=== PATIENT | female | born 2000 | race Caucasian/White ===

== ENCOUNTER 2019-06-17 18:08 | Emergency (ER) | payer OTHER ==
[2019-06-17 18:19] VITALS: BP 118/72; PULSE 77; TEMP 98.5; BMI 28.0
--- NOTE | 2019-06-17 18:50 | PDOC ---
History of Present Illness - General Chief Complaint: Sore Throat Stated Complaint: SORE THROAT X 2 WKS Time Seen by Provider: 06/17/19 18:22 History Source: Patient Exam Limitations: No Limitations Past History - Past Medical History Allergies/Adverse Reactions: Allergies Allergy/AdvReac Type Severity Reaction Status Date / Time No Known Allergies Allergy Verified 06/17/19 18:18 Home Medications: Ambulatory Orders NK [No Known Home Medication] 06/17/19 COPD: No - Psycho Social/Smoking Cessation Hx Smoking History: Never smoked *Physical Exam - Vital Signs Last Vital Signs Temp Pulse Resp BP Pulse Ox 98.5 F 77 18 118/72 99 06/17/19 18:16 06/17/19 18:16 06/17/19 18:16 06/17/19 18:16 06/17/19 18:16 - Physical Exam General Appearance: No: Apparent Distress HEENT: positive: TMs Normal, Pharynx Normal. negative: Pharyngeal Erythema, Tonsillar Exudate, Tonsillar Erythema, Rhinorrhea Respiratory/Chest: positive: Lungs Clear, Normal Breath Sounds. negative: Respiratory Distress Cardiovascular: positive: Regular Rhythm, Regular Rate, S1, S2. negative: Murmur Gastrointestinal/Abdominal: positive: Normal Bowel Sounds, Soft. negative: Tender, Distended, Guarding, Rebound Integumentary: positive: Normal Color Neurologic: positive: Alert Medical Decision Making - Medical Decision Making 18 y/o F with no sig pmh presents with subjective fever x 3 days along with cough, congestion, sore throat. Did not check temperature. Had 2 episodes of emesis yesterday and 1 today. Also with mild diarrhea. Did not take any antipyretics today. Likely viral syndrome supportive care discussed stable for dc 06/17/19 18:45 Discharge - Discharge Information Problems reviewed: Yes Clinical Impression/Diagnosis: Viral syndrome Condition: Stable Disposition: HOME - Admission No - Additional Discharge Information Prescription Drug Monitoring Program (I-STOP) results: I-STOP not reviewed - Follow up/Referral - Patient Discharge Instructions Patient Printed Discharge Instructions: DI for Viral Gastroenteritis -- Adult Additional Instructions: Thank you for choosing [facility]. It was a pleasure taking care of you. You have likely have the stomach bug/viral syndrome Recommend plenty of hydration (at least 2-3L of water daily) You may drink pedialyte Eat light food like bananas, rice, applesauce, toast, crackers until feeling better Follow-up with your doctor in 2 day Return to the Emergency Department if your symptoms worsen or persist or have other concerning symptoms. Medardo por elegir el [facility]. Fue un placer cuidar de ti. Es probable que tenga el virus estomacal / sndrome viral Recomiende juan ramon hidratacin (al menos 2-3L de agua al da) Puedes beber pedialyte Coma alimentos ligeros yonatan pltanos, arroz, pur de manzana, tostadas, galletas saladas hasta sentirse mejor. Seguimiento con hsu mdico en 2 cevallos. Regrese al departamento de emergencias si aleksandra sntomas empeoran o persisten o si tiene otros sntomas preocupantes. Print Language: ITALIAN - Post Discharge Activity Work/Back to School Note: Back to Work
== END 2019-06-17 19:07 | disposition home or self-care (01) ==
LOC: JERFT 18:08
DX: B34.9 Viral infection, unspecified (principal)
CPT/HCPCS: 99281-25

== ENCOUNTER 2019-06-19 10:09 | Emergency (ER) | payer OTHER ==
[2019-06-19 10:26] VITALS: BP 128/61; PULSE 112; TEMP 98; BMI 28.0
[2019-06-19] MEDS ORDERED: ONDANSETRON *ODT* 4 MG TABLET SL ONE (11:58)
[2019-06-19] MEDS ORDERED: ONDANSETRON 4 MG TABLET PO ONE (12:00)
--- NOTE | 2019-06-19 12:06 | PDOC ---
History of Present Illness - General Chief Complaint: Cold Symptoms Stated Complaint: COLD SYMPTOMS Time Seen by Provider: 06/19/19 11:17 - History of Present Illness Initial Comments: 06/19/19 12:05 18-year-old female diagnosed with viral gastroenteritis still has symptoms of nausea and vomiting. She has not followed up with her primary care physician she has not taken Pedialyte Past History - Past Medical History Allergies/Adverse Reactions: Allergies Allergy/AdvReac Type Severity Reaction Status Date / Time No Known Allergies Allergy Verified 06/19/19 10:23 Home Medications: Ambulatory Orders Ondansetron [Zofran *Odt*] 4 mg SL BID #14 od.tablet 06/19/19 COPD: No - Psycho Social/Smoking Cessation Hx Smoking History: Never smoked Review of Systems - Review of Systems Constitutional: Yes: Chills, Malaise, Night Sweats. No: Fever ABD/GI: Yes: Nausea, Vomiting *Physical Exam - Vital Signs Last Vital Signs Temp Pulse Resp BP Pulse Ox 98 F 112 H 18 128/61 100 06/19/19 10:23 06/19/19 10:23 06/19/19 10:23 06/19/19 10:23 06/19/19 10:23 - Physical Exam 06/19/19 12:05 GENERAL: The patient is awake, alert, and fully oriented, in no acute distress. HEAD: Normal with no signs of trauma. EYES: sclera anicteric, conjunctiva clear. ENT: Ears normal tympanic membranes normal oropharynx clear uvula midline NECK: Normal range of motion LUNGS: Breath sounds equal, clear to auscultation bilaterally. No wheezes, and no crackles. HEART: S1 and S2 without murmur, rub or gallop. ABDOMEN: Soft, nontender, normoactive bowel sounds. No guarding, no rebound. No masses. EXTREMITIES: Normal range of motion, no edema. No clubbing or cyanosis. No cords, erythema, or tenderness. NEUROLOGICAL: Cranial nerves II through XII grossly intact. PSYCH: Normal mood, normal affect. SKIN: Warm, Dry, normal turgor, no rashes or lesions noted. ED Treatment Course - Medications Given in the ED: ED Medications Discontinued Medications Generic Name Dose Route Start Last Admin Trade Name Freq PRN Reason Stop Dose Admin Ondansetron HCl 4 mg 06/19/19 11:58 06/19/19 12:01 Zofran Odt - SL 06/19/19 11:59 4 mg ONCE ONE Administration Medical Decision Making - Medical Decision Making 06/19/19 12:05 Discussed the importance of Pedialyte for hydration and symptomatic relief with Zofran follow-up with PCP Discharge - Discharge Information Problems reviewed: Yes Clinical Impression/Diagnosis: Viral syndrome Condition: Stable Disposition: HOME - Admission No - Additional Discharge Information Prescriptions: Ondansetron [Zofran *Odt*] 4 mg SL BID #14 od.tablet - Follow up/Referral Referrals: Yoselin Albarran NP [Primary Care Provider] - - Patient Discharge Instructions Additional Instructions: Return to the emergency room for worsening symptoms please use the Zofran as needed for nausea as prescribed. Without fail follow-up with your primary care physician in 1 to 2 days for further evaluation and treatment options. Please use the Pedialyte as directed at last discharge and return to the emergency room should symptoms worsen. - Post Discharge Activity
== END 2019-06-19 12:17 | disposition home or self-care (01) ==
LOC: JERFT 10:09
DX: B34.9 Viral infection, unspecified (principal)
CPT/HCPCS: 99281-25; Q0162

== ENCOUNTER 2019-11-19 19:21 | Emergency (ER) | payer OTHER ==
[2019-11-19 19:29] VITALS: TEMP 98.4; BMI 35.5
--- NOTE | 2019-11-19 19:31 | PDOC ---
History of Present Illness - General Chief Complaint: Cold Symptoms Stated Complaint: BODYACHES Time Seen by Provider: 11/19/19 19:26 History Source: Patient Exam Limitations: No Limitations - History of Present Illness Initial Comments: 11/19/19 19:27 19 year old female with shortness of breath and fever, bodyaches since today. patient lives with sister and brother in law who was tested positive for covid. denies chest pain, cough, NVd, abdominal pain, diarrhea Past History - Medical History Allergies/Adverse Reactions: Allergies Allergy/AdvReac Type Severity Reaction Status Date / Time No Known Allergies Allergy Verified 06/19/19 10:23 Home Medications: Ambulatory Orders Ondansetron [Zofran *Odt*] 4 mg SL BID #14 od.tablet 07/28/19 Azithromycin [Zithromax 250mg Tablets -] 250 mg PO UTDICT #6 tab 11/19/19 COPD: No - Psycho-Social/Smoking History Smoking History: Never smoked Review of Systems - Review of Systems Able to Perform ROS?: Yes Is the patient limited Maltese proficient: No Constitutional: Yes: Chills, Fever, Other (bodyaCHES) Respiratory: Yes: Shortness of Breath. No: Symptoms reported, See HPI, Cough, Orthopnea, SOB with Exertion, SOB at Rest, Stridor, Wheezing, Productive cough, Hemoptysis, Other Cardiac (ROS): No: Symptoms Reported, See HPI, Chest Pain, Edema, Irregular Heart Rate, Lightheadedness, Palpitations, Syncope, Chest Tightness, Other ABD/GI: No: Symptoms Reported, See HPI, Abdominal Distended, Abd. Pain w/ defecation, Blood Streaked Bowels, Constipated, Diarrhea, Difficulty Swallowing, Nausea, Poor Appetite, Poor Fluid Intake, Rectal Bleeding, Vomiting, Indigesti on, Abdominal cramping, Tarry Stools, Other *Physical Exam - Vital Signs 11/19/19 19:34 Last Vital Signs Temp Pulse Resp BP Pulse Ox 98.4 F 103 H 20 114/54 L 98 11/19/19 19:26 11/19/19 19:26 11/19/19 19:26 11/19/19 19:26 11/19/19 19:26 - Physical Exam General Appearance: Yes: Appropriately Dressed HEENT: positive: Normal ENT Inspection Respiratory/Chest: positive: Lungs Clear, Normal Breath Sounds Cardiovascular: positive: Regular Rhythm, Regular Rate Extremity: positive: Normal Capillary Refill, Normal Inspection, Normal Range of Motion Integumentary: positive: Dry, Warm Neurologic: positive: Fully Oriented, Alert, Normal Mood/Affect Medical Decision Making - Medical Decision Making 11/19/19 19:33 A: suspected covid P: covid chest xray: some congestion will empirically treat strict return precautions were reviewed with patient. Discharge - Discharge Information Problems reviewed: Yes Clinical Impression/Diagnosis: Suspected COVID-19 virus infection, Bronchitis Disposition: HOME - Additional Discharge Information Prescriptions: Azithromycin [Zithromax 250mg Tablets -] 250 mg PO UTDICT #6 tab - Follow up/Referral Referrals: Yoselin Albarran NP [Primary Care Provider] - - Patient Discharge Instructions Patient Printed Discharge Instructions: [facility]-Coronavirus Instructions, [facility]- [facility] COVID-19 Isolation Protocol Additional Instructions: YOU WERE TESTED FOR COVID. YOU TEST RESULTS TAKE SEVERAL DAYS TO RESULT. PLEASE CONTINUE ISOLATION AT HOME. WE WILL CALL YOU [facility] YOUR RESULTS. You were seen for your cough and possible Coronavirus (COVID-19) Please call the [facility] testing center to make an appointment at or you can call [facility] at from 8:30 AM to 6 PM; or you can visit the [facility] website: [email or web address] for more information about testing at the [facility]. Take Tylenol 650 mg every 6 hours as needed for fever or pain. TAKE IBUPROFEN every 6 hours as needed for fever/ pain You may take Robitussin or other tlyt-maa-tbqkepo cough syrup. Follow the dosing instructions on the bottle. Warm tea, honey, and salt water gargles may help your symptoms. Please take precautions and self quarantine for 2 weeks and follow-up with your primary care doctor and the Department of Health. Return to the nearest emergency department for shortness of breath, difficulty breathing, chest pain, or if you have any changes in your symptoms. - Post Discharge Activity
[2019-11-19 19:59] VITALS: BP 142/62; PULSE 94
== END 2019-11-19 20:01 | disposition home or self-care (01) ==
LOC: JER 19:21
DX: J40 Bronchitis, not specified as acute or chronic (principal)
CPT/HCPCS: 71046-TC-FY; 99283-25; U0003

== ENCOUNTER 2019-11-27 20:41 | Emergency (ER) | payer OTHER ==
[2019-11-27] MEDS ORDERED: ONDANSETRON *ODT* 4 MG TABLET SL ONE (20:52)
[2019-11-27 20:53] VITALS: BP 128/64; BMI 35.5
--- NOTE | 2019-11-27 20:54 | PDOC ---
Rapid Medical Evaluation Chief Complaint: Vomiting/Diarrhea Time Seen by Provider: 11/27/19 20:50 Medical Evaluation: Allergies Allergy/AdvReac Type Severity Reaction Status Date / Time No Known Allergies Allergy Verified 06/19/19 10:23 11/27/19 20:51 19 year old here with boyfriend c/o NVD after eating out last night. last vomitus was 1 am. boy friend also here with similar symptoms. PE: patient alert ox3 [place] moist A: gastroenteritis P: ua/ urine Discharge Disposition - Diagnosis Gastroenteritis - Referrals - Patient Instructions - Post Discharge Activity
--- NOTE | 2019-11-27 21:20 | PDOC ---
History of Present Illness - General Chief Complaint: Vomiting/Diarrhea Stated Complaint: VOMITING Time Seen by Provider: 11/27/19 20:50 History Source: Patient - History of Present Illness Initial Comments: 11/27/19 21:53 19 year old female c/o NVD after eating liberian food last night. last vomiting episode was at 1 am and now has diarrhea. boyfriend is here with similar symptoms. PMHX: gastritis Past History - Medical History Allergies/Adverse Reactions: Allergies Allergy/AdvReac Type Severity Reaction Status Date / Time No Known Allergies Allergy Verified 11/27/19 20:53 Home Medications: Ambulatory Orders Ondansetron [Zofran *Odt*] 4 mg SL BID #14 od.tablet 07/28/19 Azithromycin [Zithromax 250mg Tablets -] 250 mg PO UTDICT #6 tab 11/19/19 COPD: No - Psycho-Social/Smoking History Smoking History: Never smoked - Substance Abuse Hx (Audit-C & DAST Scrn) How often the patient has a drink containing alcohol: Never Score: In Men: 4 or > Positive; In Women: 3 or > Positive: 0 Screen Result (Pos requires Nsg. Audit-10AR): Negative *Physical Exam - Vital Signs Last Vital Signs Temp Pulse Resp BP Pulse Ox 99.2 F 110 H 18 128/64 97 11/27/19 20:50 11/27/19 20:50 11/27/19 20:50 11/27/19 20:50 11/27/19 20:50 - Physical Exam General Appearance: Yes: Appropriately Dressed Respiratory/Chest: positive: Lungs Clear, Normal Breath Sounds Cardiovascular: positive: Regular Rhythm, Regular Rate Gastrointestinal/Abdominal: positive: Normal Bowel Sounds, Soft. negative: Tender Extremity: positive: Normal Capillary Refill, Normal Inspection, Normal Range of Motion Integumentary: positive: Normal Color, Dry, Warm Neurologic: positive: Fully Oriented, Alert, Normal Mood/Affect, Normal Response, Motor Strength 5/5 ED Progress Note - Progress Note Progress Note: 11/28/19 03:58 A: gastroenteritis P: BRAT diet zofran Discharge - Discharge Information Problems reviewed: Yes Clinical Impression/Diagnosis: Gastroenteritis Disposition: HOME - Follow up/Referral Referrals: Yoselin Albarran NP [Primary Care Provider] - - Patient Discharge Instructions Patient Printed Discharge Instructions: Viral Gastroenteritis Additional Instructions: drink plenty of fluids. start a BRAT (bananas, rice, apples, toast) diet follow up with your doctor as soon as possible return to the ER for any worsening symptoms/ - Post Discharge Activity Work/Back to School Note: Back to Work
[2019-11-27] MEDS ORDERED: ONDANSETRON *ODT* 4 MG TABLET ONE (21:30)
[2019-11-27 21:48] LABS: PH,URINE 6.5 (5.0-8.0); URINE APPEARANCE CLEAR; URINE BILIRUBIN NEGATIVE (NEGATIVE); URINE COLOR YELLOW; URINE GLUCOSE (UA) NEGATIVE (NEGATIVE); URINE KETONE NEGATIVE (NEGATIVE); URINE LEUK ESTERASE NEGATIVE (NEGATIVE); URINE NITRITE NEGATIVE (NEGATIVE); URINE PROTEIN NEGATIVE (NEGATIVE)
[2019-11-27 21:50] LABS: HCG,QUALITATIVE URINE Negative
[2019-11-27 22:17] VITALS: PULSE 99; TEMP 98.3
== END 2019-11-27 22:18 | disposition home or self-care (01) ==
LOC: JER 20:41
DX: K52.9 Noninfective gastroenteritis and colitis, unspecified (principal)
CPT/HCPCS: 81003; 84703; 99283-25; Q0162

== ENCOUNTER 2019-12-04 19:39 | Emergency (ER) | payer OTHER ==
[2019-12-04] MEDS ORDERED: FAMOTIDINE 20 MG TABLET PO ONE (19:49)
[2019-12-04] MEDS ORDERED: MAG HYDROX/AL HYDROX/SIMETH 30 ML UNIT-DOSE CUP PO ONE (19:49)
[2019-12-04 19:50] VITALS: BMI 35.5
[2019-12-04] MEDS ORDERED: ONDANSETRON *ODT* 4 MG TABLET SL ONE (19:51)
--- NOTE | 2019-12-04 19:52 | PDOC ---
Rapid Medical Evaluation Chief Complaint: Diarrhea Time Seen by Provider: 12/04/19 19:47 Medical Evaluation: Allergies Allergy/AdvReac Type Severity Reaction Status Date / Time No Known Allergies Allergy Verified 11/27/19 20:53 12/04/19 19:47 19 year old female with 12 episodes of diarrhea and feels tired. symptoms started 2 days ago. had vomiting which resolved. has similar episode last week which resolved on its own. has epigastric pain. last vomiting episode yesterday PE: patient alert . mucosa moist Last Vital Signs Temp Pulse Resp BP Pulse Ox 98.6 F 99 H 20 139/66 99 12/04/19 19:45 12/04/19 19:45 12/04/19 19:45 12/04/19 19:45 12/04/19 19:45 A: diarrhea P: UA urine GI cocktail Discharge Disposition - Diagnosis Diarrhea Qualifiers: Diarrhea type: unspecified type Qualified Code(s): R19.7 - Diarrhea, unspecified - Referrals - Patient Instructions - Post Discharge Activity
[2019-12-04] MEDS ORDERED: MAG HYDROX/AL HYDROX/SIMETH 30 ML UNIT-DOSE CUP ONE (20:11)
[2019-12-04] MEDS ORDERED: ONDANSETRON *ODT* 4 MG TABLET ONE (20:11)
[2019-12-04] MEDS ORDERED: FAMOTIDINE 20 MG TABLET ONE (20:11)
[2019-12-04 20:14] LABS: URINE APPEARANCE CLOUDY; URINE BILIRUBIN NEGATIVE (NEGATIVE); URINE COLOR YELLOW; URINE GLUCOSE (UA) NEGATIVE (NEGATIVE); URINE KETONE NEGATIVE (NEGATIVE); URINE LEUK ESTERASE NEGATIVE (NEGATIVE); URINE NITRITE NEGATIVE (NEGATIVE); URINE PROTEIN NEGATIVE (NEGATIVE); URINE UROBILINOGEN 0.2 mg/dL (0.2-1.0)
[2019-12-04 20:16] LABS: HCG,QUALITATIVE URINE Negative
[2019-12-04] MEDS ORDERED: SODIUM CHLORIDE 1,000 ML IV STA (20:37)
[2019-12-04] MEDS ORDERED: ONDANSETRON 4 MG/2 ML VIAL IVPUSH ONE ×2 (20:37→22:20)
--- NOTE | 2019-12-04 21:06 | PDOC ---
History of Present Illness - General Chief Complaint: Diarrhea Stated Complaint: VOMITTING Time Seen by Provider: 12/04/19 19:47 History Source: Patient Exam Limitations: No Limitations - History of Present Illness Travel History: No Initial Comments: 12/04/19 20:41 HISTORY OF PRESENT ILLNESS: 19-year-old woman denies past medical history presents emergency department for evaluation of nonbilious nonbloody vomiting and yellow diarrhea worsening over the past 2 days. Patient reports she been seeing Dr. Ramos from gastroenterology for previous abdominal pain which had negative work-up. She denies any recent travel, fevers, chills, rectal bleedin g, abdominal pain. No recent travel or sick contacts. PAST MEDICAL HISTORY: Denies past medical history SURGICAL HISTORY: Denies ALLERGIES: No known drug allergies REVIEW OF SYSTEMS General/Constitutional: Denies fever or chills. Denies weakness, weight change. HEENT: Denies change in vision. Denies ear pain or discharge. Denies sore throat. Cardiovascular: Denies chest pain or shortness of breath. Respiratory: Denies cough, wheezing, or hemoptysis. Gastrointestinal: See HPI Genitourinary: Denies dysuria, frequency, or change in urination. Musculoskeletal: Denies joint or muscle swelling or pain. Denies neck or back pain. Skin and breasts: Denies rash or easy bruising. Neurologic: Denies headache, vertigo, loss of consciousness, or loss of sensation. Psychiatric: Denies depression or anxiety. Endocrine: Denies increased thirst. Denies abnormal weight change. Hematologic/Lymphatic: Denies anemia, easy bleeding, or history of blood clots. Allergic/Immunologic: Denies hives or skin allergy. Denies latex allergy. PHYSICAL EXAM General Appearance: Well-appearing, appropriately dressed. No apparent distress, no intoxication. Respiratory/Chest: Lungs CTAB. No shortness of breath, chest tenderness, respiratory distress, accessory muscle use. No crackles, rales, rhonchi, stridor, wheezing, dullness Cardiovascular: RRR. S1, S2. No JVD, murmur, bradycardia, tachycardia. Gastrointestinal/Abdominal: Normal bowel sounds. Abdomen soft, non-distended. No tenderness or rebound tenderness. No organomegaly, pulsatile mass, guarding, hernia, hepatomegaly, splenomegaly. Past History - Medical History Allergies/Adverse Reactions: Allergies Allergy/AdvReac Type Severity Reaction Status Date / Time No Known Allergies Allergy Verified 11/27/19 20:53 Home Medications: Ambulatory Orders Ondansetron [Zofran *Odt*] 4 mg SL BID #14 od.tablet 07/28/19 Azithromycin [Zithromax 250mg Tablets -] 250 mg PO UTDICT #6 tab 11/19/19 COPD: No - Psycho-Social/Smoking History Smoking History: Never smoked - Substance Abuse Hx (Audit-C & DAST Scrn) How often the patient has a drink containing alcohol: Never Score: In Men: 4 or > Positive; In Women: 3 or > Positive: 0 Screen Result (Pos requires Nsg. Audit-10AR): Negative *Physical Exam - Vital Signs Last Vital Signs Temp Pulse Resp BP Pulse Ox 98.6 F 99 H 20 139/66 99 12/04/19 19:45 12/04/19 19:45 12/04/19 19:45 12/04/19 19:45 12/04/19 19:45 ED Treatment Course - LABORATORY CBC & Chemistry Diagram: 12/04/19 21:00 12/04/19 21:00 - ADDITIONAL ORDERS Additional order review: Laboratory Results 12/04/19 19:55 Urine Color Yellow Urine Appearance Cloudy Urine pH 5.0 D Ur Specific [place] 1.020 Urine Protein Negative Urine Glucose (UA) Negative Urine Ketones Negative Urine Blood Negative Urine Nitrite Negative Urine Bilirubin Negative Urine Urobilinogen 0.2 Ur Leukocyte Esterase Negative Urine HCG, Qual Negative - Medications Given in the ED: ED Medications Discontinued Medications Generic Name Dose Route Start Last Admin Trade Name Freq PRN Reason Stop Dose Admin Al Hydroxide/Mg Hydroxide 30 ml 12/04/19 19:49 12/04/19 20:16 Mylanta Oral Suspension - PO 12/04/19 19:50 30 ml ONCE ONE Administration Famotidine 20 mg 12/04/19 19:49 12/04/19 20:16 Pepcid - PO 12/04/19 19:50 20 mg ONCE ONE Administration Ondansetron HCl 4 mg 12/04/19 19:51 12/04/19 20:16 Zofran Odt - SL 12/04/19 19:52 4 mg ONCE ONE Administration Medical Decision Making - Medical Decision Making 12/04/19 20:43 A/P: 19-year-old woman with 2 days of nausea, vomiting and loose yellow stools Physical exam is unremarkable. As patient reports having 12 episodes of vomiting and loose stool I will get a set of basic labs, normal saline IV bolus and Zofran reevaluate. 12/04/19 21:28 Patient has been signed out to ASIF Guo for follow-up Discharge - Discharge Information Problems reviewed: Yes Clinical Impression/Diagnosis: Epigastric abdominal pain, Gastroenteritis Diarrhea Qualifiers: Diarrhea type: unspecified type Qualified Code(s): R19.7 - Diarrhea, unspecified Condition: Improved Disposition: HOME - Follow up/Referral Referrals: Yoselin Albarran NP [Primary Care Provider] - Brien Lara MD [Staff Physician] - - Patient Discharge Instructions Additional Instructions: Return to the emergency room for worsening symptoms and without fail follow-up with gastroenterology in 1 to 2 days for further evaluation and treatment options. - Post Discharge Activity Work/Back to School Note: Back to Work, Parent(s) Back to Work Note
[2019-12-04 21:42] LABS: EOS % 2.2 % (0-4.5); HEMOGLOBIN 13.2 GM/dL (10.7-15.3); LYMPH % 28.3 % (8-40); MCH 31.9 pg (25.7-33.7); MCHC 33.9 g/dl (32.0-36.0); MEAN CELL VOLUME 94.1 fl (80-96); MEAN PLT VOLUME 8.6 fl (7.5-11.1); MONO % 9.3 % (3.8-10.2); NEUT % 59.2 % (42.8-82.8); PLATELET COUNT 385 K/MM3 (134-434); RBC 4.15 M/mm3 (3.60-5.2); RDW 13.4 % (11.6-15.6); WHITE BLOOD COUNT 10.6 K/mm3 (4.0-10.0)
[2019-12-04 22:09] LABS: ALBUMIN 3.9 g/dl (3.4-5.0); CALCIUM 9.5 mg/dL (8.5-10.1); CREATININE 0.6 mg/dL (0.55-1.3); POTASSIUM 4.2 mmol/L (3.5-5.1); TOT PROT 7.5 g/dl (6.4-8.2)
[2019-12-04 22:19] LABS: BILIRUBIN,TOTAL 0.2 mg/dL (0.2-1)
--- NOTE | 2019-12-04 22:40 | PDOC ---
*Physical Exam - Vital Signs Last Vital Signs Temp Pulse Resp BP Pulse Ox 98.6 F 99 H 20 139/66 99 12/04/19 19:45 12/04/19 19:45 12/04/19 19:45 12/04/19 19:45 12/04/19 19:45 - Physical Exam Gastrointestinal/Abdominal: positive: Soft. negative: Tender ED Treatment Course - LABORATORY CBC & Chemistry Diagram: 12/04/19 21:00 12/04/19 21:00 - ADDITIONAL ORDERS Additional order review: Laboratory Results 12/04/19 12/04/19 21:00 19:55 Sodium 138 Potassium 4.2 Chloride 107 Carbon Dioxide 25 Anion Gap 6 L BUN 10.0 Creatinine 0.6 Est GFR (CKD-EPI)AfAm 152.08 Est GFR (CKD-EPI)NonAf 131.21 Random Glucose 92 Calcium 9.5 Total Bilirubin 0.2 AST 16 ALT 17 Alkaline Phosphatase 74 Total Protein 7.5 Albumin 3.9 Lipase 76 Urine Color Yellow Urine Appearance Cloudy Urine pH 5.0 D Ur Specific [place] 1.020 Urine Protein Negative Urine Glucose (UA) Negative Urine Ketones Negative Urine Blood Negative Urine Nitrite Negative Urine Bilirubin Negative Urine Urobilinogen 0.2 Ur Leukocyte Esterase Negative Urine HCG, Qual Negative 12/04/19 21:00 RBC 4.15 MCV 94.1 MCHC 33.9 RDW 13.4 MPV 8.6 Neutrophils % 59.2 Lymphocytes % 28.3 Monocytes % 9.3 Eosinophils % 2.2 Basophils % 1.0 - Medications Given in the ED: ED Medications Discontinued Medications Generic Name Dose Route Start Last Admin Trade Name Freq PRN Reason Stop Dose Admin Al Hydroxide/Mg Hydroxide 30 ml 12/04/19 19:49 12/04/19 20:16 Mylanta Oral Suspension - PO 12/04/19 19:50 30 ml ONCE ONE Administration Famotidine 20 mg 12/04/19 19:49 12/04/19 20:16 Pepcid - PO 12/04/19 19:50 20 mg ONCE ONE Administration Sodium Chloride 1,000 mls @ 1,000 mls/hr 12/04/19 20:37 12/04/19 21:02 Normal Saline - IV 12/04/19 21:36 1,000 mls/hr ASDIR STA Administration Ondansetron HCl 4 mg 12/04/19 19:51 12/04/19 20:16 Zofran Odt - SL 12/04/19 19:52 4 mg ONCE ONE Administration Ondansetron HCl 4 mg 12/04/19 20:37 12/04/19 21:02 Zofran Injection IVPUSH 12/04/19 20:38 4 mg ONCE ONE Administration Medical Decision Making - Medical Decision Making 12/04/19 22:37 Patient was able to tolerate p.o. 3 CA Zofran given upon discharge. abdomen nontender. Follow-up with GI. Most likely viral gastroenteritis. I have reviewed the pathophysiology with the patient. They are in agreement with the treatment plan all questions were answered to their satisfaction. Understanding for follow-up without fail was also conveyed to the patient. Again they are in agreement. Discharge - Discharge Information Problems reviewed: Yes Clinical Impression/Diagnosis: Epigastric abdominal pain, Gastroenteritis Diarrhea Qualifiers: Diarrhea type: unspecified type Qualified Code(s): R19.7 - Diarrhea, unspecified Condition: Improved Disposition: HOME - Admission No - Follow up/Referral Referrals: Yoselin Albarran NP [Primary Care Provider] - Brien Lara MD [Staff Physician] - - Patient Discharge Instructions Additional Instructions: Return to the emergency room for worsening symptoms and without fail follow-up with gastroenterology in 1 to 2 days for further evaluation and treatment options. - Post Discharge Activity Work/Back to School Note: Back to Work
[2019-12-04 23:27] VITALS: BP 136/80; PULSE 87; TEMP 98.5
== END 2019-12-04 23:26 | disposition home or self-care (01) ==
LOC: JER 19:39
PROC: 3E033GC Introduction of Other Therapeutic Substance into Peripheral Vein, Percutaneous Approach (ICD-10-PCS; principal; 2019-12-04)
PROC: 3E0337Z Introduction of Electrolytic and Water Balance Substance into Peripheral Vein, Percutaneous Approach (ICD-10-PCS; principal; 2019-12-04)
DX: K52.9 Noninfective gastroenteritis and colitis, unspecified (principal)
CPT/HCPCS: 36415; 80053; 81003; 83690; 84703; 85025; 96361; 96374; 96376; 99284-25; Q0162

== ENCOUNTER 2020-03-28 21:54 | Emergency (ER) | payer OTHER ==
[2020-03-28 22:06] VITALS: BP 132/87; PULSE 86; TEMP 98; BMI 36.2
[2020-03-28] MEDS ORDERED: ACETAMINOPHEN 1000 MG/100 ML VIAL (NON FORMULARY) IVPB ONE (23:37)
[2020-03-28] MEDS ORDERED: ACETAMINOPHEN INJECTION 100 ML IVPB ONE (23:40)
[2020-03-29 00:26] LABS: BASO % 0.4 % (0-2.0); EOS % 1.7 % (0-4.5); HEMATOCRIT 36.2 % (32.4-45.2); HEMOGLOBIN 12.3 GM/dL (10.7-15.3); LYMPH % 25.9 % (8-40); MEAN PLT VOLUME 8.5 fl (7.5-11.1); MONO % 7.9 % (3.8-10.2); NEUT % 64.1 % (42.8-82.8); PLATELET COUNT 390 K/MM3 (134-434); RBC 3.85 M/mm3 (3.60-5.2); RDW 14.2 % (11.6-15.6); WHITE BLOOD COUNT 12.4 K/mm3 (4.0-10.0)
[2020-03-29 00:28] LABS: PH,URINE 6.5 (5.0-8.0); URINE APPEARANCE CLEAR; URINE BILIRUBIN NEGATIVE (NEGATIVE); URINE COLOR YELLOW; URINE GLUCOSE (UA) NEGATIVE (NEGATIVE); URINE KETONE NEGATIVE (NEGATIVE); URINE LEUK ESTERASE NEGATIVE (NEGATIVE); URINE NITRITE NEGATIVE (NEGATIVE); URINE PROTEIN NEGATIVE (NEGATIVE); URINE UROBILINOGEN 0.2 mg/dL (0.2-1.0)
[2020-03-29 00:45] LABS: POTASSIUM 3.6 mmol/L (3.5-5.1)
[2020-03-29 00:47] LABS: ALBUMIN 3.9 g/dl (3.4-5.0); BLOOD UREA NITROGEN 5.8 mg/dL (7-18); CALCIUM 9.2 mg/dL (8.5-10.1)
[2020-03-29 00:50] LABS: CREATININE 0.6 mg/dL (0.55-1.3)
[2020-03-29 00:52] LABS: BILIRUBIN,TOTAL 0.3 mg/dL (0.2-1); TOT PROT 7.6 g/dl (6.4-8.2)
[2020-03-29] MEDS ORDERED: LACTATED RINGERS SOLUTION 1000 ML INFUS.BAG IV ONE (01:16)
== END 2020-03-29 01:21 | disposition home or self-care (01) ==
LOC: JER 21:54
PROC: 3E033NZ Introduction of Analgesics, Hypnotics, Sedatives into Peripheral Vein, Percutaneous Approach (ICD-10-PCS; principal; 2020-03-28)
DX: O20.0 Threatened abortion (principal)
CPT/HCPCS: 36415; 76817-TC; 80053; 81003; 84702; 85025; 86850; 86900; 86901; 87086; 87491; 87591; 99285-25; J0131

== ENCOUNTER 2020-09-30 16:50 | Inpatient (IN) | payer OTHER ==
[2020-09-30] MEDS ORDERED: SODIUM PHOSPHATE/NA BIPHOS 133 ML ENEMA PR ONE (17:27)
[2020-09-30] MEDS ORDERED: DINOPROSTONE 10 MG VAGINAL SUPPOSITORY VG ONE (17:28)
[2020-09-30] MEDS ORDERED: PROMETHAZINE HCL 25 MG/1 ML VIAL IVPUSH ONE (17:30)
[2020-09-30] MEDS ORDERED: BUTORPHANOL TARTRATE 1 MG/ML VIAL IVPB ONE (17:30)
[2020-09-30 18:47] VITALS: BMI 43.9
[2020-09-30 19:07] LABS: BASO % 0.4 % (0-2.0); EOS % 0.8 % (0-4.5); HEMATOCRIT 37.3 % (32.4-45.2); HEMOGLOBIN 12.5 GM/dL (10.7-15.3); LYMPH % 16.1 % (8-40); MCH 32.3 pg (25.7-33.7); MCHC 33.3 g/dl (32.0-36.0); MEAN CELL VOLUME 96.9 fl (80-96); MEAN PLT VOLUME 9.9 fl (7.5-11.1); MONO % 6.9 % (3.8-10.2); NEUT % 75.8 % (42.8-82.8); PLATELET COUNT 273 K/MM3 (134-434); RBC 3.85 M/mm3 (3.60-5.2); WHITE BLOOD COUNT 13.1 K/mm3 (4.0-10.0)
[2020-09-30 19:16] LABS: INR 0.93 (0.83-1.09); PROTHROMBIN TIME (PATIENT) 11.5 SEC (9.7-13.0)
[2020-09-30 19:19] LABS: ACTIVATED PTT 26.8 SECONDS (25.2-36.5)
[2020-09-30 19:32] LABS: ALBUMIN 2.7 g/dl (3.4-5.0); BLOOD UREA NITROGEN 9.6 mg/dL (7-18); CALCIUM 9.5 mg/dL (8.5-10.1)
[2020-09-30 19:34] LABS: URIC ACID 3.8 mg/dL (2.6-7.2)
[2020-09-30 19:35] LABS: CREATININE 0.5 mg/dL (0.55-1.3)
[2020-09-30 19:37] LABS: BILIRUBIN,TOTAL 0.2 mg/dL (0.2-1); TOT PROT 6.6 g/dl (6.4-8.2)
[2020-09-30] MEDS: ELECTROLYTE-148 SOLN 1,000 ML IV SCH (20:45)
[2020-09-30 21:17] LABS: EPI CELLS >36 /uL (0-25.1); HYALINE CASTS 4 /uL (0-3.1); URINE APPEARANCE CLOUDY; URINE BACTERIA 692 /uL (0-1359); URINE BILIRUBIN NEGATIVE (NEGATIVE); URINE COLOR YELLOW; URINE GLUCOSE (UA) NEGATIVE (NEGATIVE); URINE KETONE NEGATIVE (NEGATIVE); URINE LEUK ESTERASE 3+ (NEGATIVE); URINE NITRITE NEGATIVE (NEGATIVE); URINE PROTEIN NEGATIVE (NEGATIVE); URINE RBC 9 /uL (0-23.9); URINE UROBILINOGEN 0.2 mg/dL (0.2-1.0); URINE WBC 56 /uL (0-25.8)
[2020-10-01] MEDS: ELECTROLYTE-148 SOLN 1,000 ML IV SCH ×2 (03:25→16:00)
[2020-10-01] MEDS ORDERED: DINOPROSTONE 10 MG VAGINAL SUPPOSITORY VG ONE (10:32)
[2020-10-01] MEDS ORDERED: DEXTROSE 5%-LACTATED RINGERS 1,000 ML IV SCH ×3 (11:30)
[2020-10-01] MEDS: INSULIN SLIDING SCALE (NOVOLOG) 1 VIAL SQ SCH ×2 (13:04→18:52)
[2020-10-01] MEDS ORDERED: CITRIC ACID/SODIUM CITRATE 30 ML UNIT-DOSE CUP PO ONE (22:53)
[2020-10-01] MEDS ORDERED: OXYTOCIN 20 UNITS in 0.9% NS 20 UNIT/1,000 ML INFUS.BAG IV ONE (23:26)
[2020-10-01] MEDS ORDERED: SODIUM CHLORIDE 0.9% P/F 10 ML VIAL IJ ONE (23:28)
[2020-10-01] MEDS ORDERED: morphine SULFATE/PF 0.5 MG/ML (2cc Syringe - QUVA) ONE (23:28)
[2020-10-01] MEDS ORDERED: ePHEDrine SULFATE 50 MG/1 ML AMPULE ONE (23:28)
[2020-10-01] MEDS ORDERED: SUCCINYLCHOLINE CHLORIDE 200 MG/10 ML SYRINGE ONE (23:29)
[2020-10-01] MEDS ORDERED: ONDANSETRON 4 MG/2 ML VIAL IVPUSH PRN (23:32)
[2020-10-01] MEDS ORDERED: ACETAMINOPHEN 1000 MG/100 ML VIAL (NON FORMULARY) IVPB PRN (23:33)
[2020-10-02] MEDS: OXYTOCIN 20 UNITS in 0.9% NS 20 UNIT/1,000 ML INFUS.BAG IV SCH ×2 (00:15→09:00)
[2020-10-02] MEDS ORDERED: ceFAZolin SODIUM 1 GM VIAL ONE (00:16)
[2020-10-02] MEDS ORDERED: ONDANSETRON 4 MG/2 ML VIAL ONE (00:16)
[2020-10-02] MEDS ORDERED: KETOROLAC TROMETHAMINE 30 MG/1 ML VIAL ONE (00:16)
[2020-10-02] MEDS ORDERED: oxyCODONE HCL 5 MG TABLET PO PRN (00:37)
[2020-10-02] MEDS ORDERED: METHYLERGONOVINE MALEATE 0.2 MG/1 ML AMP IM PRN (00:37)
[2020-10-02] MEDS ORDERED: IBUPROFEN 600 MG TABLET (FP) PO PRN (00:37)
[2020-10-02] MEDS ORDERED: IBUPROFEN 800 MG/8 ML IJ IVPB PRN (00:37)
[2020-10-02] MEDS: INSULIN SLIDING SCALE (NOVOLOG) 1 VIAL SQ SCH ×4 (01:59→22:06)
[2020-10-02] MEDS ORDERED: IBUPROFEN 600 MG TABLET (FP) PO ONE (04:16)
[2020-10-02] MEDS ORDERED: ACETAMINOPHEN 325 MG TABLET (FP) ONE (04:16)
[2020-10-02] MEDS ORDERED: diphenhydrAMINE HCL 25 MG CAPSULE (FP) PO ONE (04:16)
[2020-10-02] MEDS: ACETAMINOPHEN 325 MG TABLET (FP) PO PRN (04:20)
[2020-10-02] MEDS: IBUPROFEN 600 MG TABLET (FP) PO PRN (04:21)
[2020-10-02] MEDS ORDERED: OXYTOCIN 20 UNITS in 0.9% NS 20 UNIT/1,000 ML INFUS.BAG IV ONE (08:25)
[2020-10-02] MEDS: PRENATAL VITAMINS W/ FOLIC ACID TABLET (FP) PO SCH (13:20)
[2020-10-02] MEDS: FERROUS SO4 325 MG TABLET (FP) PO SCH ×2 (13:21→22:06)
[2020-10-03] MEDS ORDERED: BISACODYL 10 MG SUPP.RECT RC PRN (00:37)
[2020-10-03] MEDS: SIMETHICONE 80 MG TAB.CHEW (FP) PO PRN (01:22)
[2020-10-03] MEDS: IBUPROFEN 600 MG TABLET (FP) PO PRN ×2 (01:22→14:48)
[2020-10-03] MEDS: ACETAMINOPHEN 325 MG TABLET (FP) PO PRN ×2 (01:23→14:49)
[2020-10-03] MEDS: INSULIN SLIDING SCALE (NOVOLOG) 1 VIAL SQ SCH ×3 (06:47→17:51)
[2020-10-03 07:09] LABS: BASO % 0.4 % (0-2.0); EOS % 1.3 % (0-4.5); HEMATOCRIT 32.8 % (32.4-45.2); HEMOGLOBIN 11.2 GM/dL (10.7-15.3); LYMPH % 21.2 % (8-40); MCH 32.9 pg (25.7-33.7); MEAN CELL VOLUME 96.8 fl (80-96); MEAN PLT VOLUME 9.7 fl (7.5-11.1); MONO % 8.2 % (3.8-10.2); NEUT % 68.9 % (42.8-82.8); PLATELET COUNT 234 K/MM3 (134-434); RBC 3.39 M/mm3 (3.60-5.2); RDW 15.2 % (11.6-15.6)
[2020-10-03] MEDS ORDERED: DIPHTH,PERTUSS(ACELL),TET 0.5 ML DISP.SYRIN IM ONE (10:00)
[2020-10-03] MEDS: PRENATAL VITAMINS W/ FOLIC ACID TABLET (FP) PO SCH (11:08)
[2020-10-03] MEDS: FERROUS SO4 325 MG TABLET (FP) PO SCH ×2 (11:08→21:32)
[2020-10-03] MEDS: SENNOSIDES/DOCUSATE COMBO (SENNA PLUS) TABLET (UD) PO PRN (21:32)
[2020-10-04] MEDS: SIMETHICONE 80 MG TAB.CHEW (FP) PO PRN ×4 (00:55→22:04)
[2020-10-04] MEDS: ACETAMINOPHEN 325 MG TABLET (FP) PO PRN ×4 (00:55→22:04)
[2020-10-04] MEDS: IBUPROFEN 600 MG TABLET (FP) PO PRN ×4 (00:56→22:04)
[2020-10-04] MEDS: FERROUS SO4 325 MG TABLET (FP) PO SCH ×2 (09:44→22:04)
[2020-10-04] MEDS: PRENATAL VITAMINS W/ FOLIC ACID TABLET (FP) PO SCH (09:44)
[2020-10-04] MEDS: SENNOSIDES/DOCUSATE COMBO (SENNA PLUS) TABLET (UD) PO PRN (22:03)
[2020-10-05 07:21] LABS: BASO % 0.7 % (0-2.0); EOS % 2.3 % (0-4.5); HEMOGLOBIN 11.2 GM/dL (10.7-15.3); LYMPH % 30.7 % (8-40); MCHC 33.9 g/dl (32.0-36.0); MEAN CELL VOLUME 97.3 fl (80-96); MEAN PLT VOLUME 9.2 fl (7.5-11.1); MONO % 6.8 % (3.8-10.2); NEUT % 59.5 % (42.8-82.8); PLATELET COUNT 303 K/MM3 (134-434); RBC 3.39 M/mm3 (3.60-5.2); RDW 15.1 % (11.6-15.6); WHITE BLOOD COUNT 7.5 K/mm3 (4.0-10.0)
[2020-10-05] MEDS: ACETAMINOPHEN 325 MG TABLET (FP) PO PRN ×2 (09:58→17:32)
[2020-10-05] MEDS: SIMETHICONE 80 MG TAB.CHEW (FP) PO PRN ×2 (09:59→17:33)
[2020-10-05] MEDS: PRENATAL VITAMINS W/ FOLIC ACID TABLET (FP) PO SCH (09:59)
[2020-10-05] MEDS: FERROUS SO4 325 MG TABLET (FP) PO SCH ×2 (09:59→21:09)
[2020-10-05] MEDS: IBUPROFEN 600 MG TABLET (FP) PO PRN ×2 (09:59→17:33)
[2020-10-05] MEDS: SENNOSIDES/DOCUSATE COMBO (SENNA PLUS) TABLET (UD) PO PRN (20:35)
[2020-10-06] MEDS: FERROUS SO4 325 MG TABLET (FP) PO SCH (09:58)
[2020-10-06] MEDS: PRENATAL VITAMINS W/ FOLIC ACID TABLET (FP) PO SCH (09:58)
[2020-10-06 10:11] VITALS: BP 113/74; PULSE 91; TEMP 98
== END 2020-10-06 13:35 | disposition home or self-care (01) | DRG 540 ==
LOC: JLDR 16:50 → J3W 10-02 13:00
PROVIDERS: ADMIT Obstetrics & Gynecology; ATTEND Obstetrics & Gynecology
PROC: 3E0P7VZ Introduction of Hormone into Female Reproductive, Via Natural or Artificial Opening (ICD-10-PCS; 2020-09-30)
PROC: 10D00Z1 Extraction of Products of Conception, Low, Open Approach (ICD-10-PCS; principal; 2020-10-02)
DX: O40.3XX0 Polyhydramnios, third trimester, not applicable or unspecified (principal); O36.63X0 Maternal care for excessive fetal growth, third trimester, not applicable or unspecified; O99.213 Obesity complicating pregnancy, third trimester; O24.424 Gestational diabetes mellitus in childbirth, insulin controlled; Z3A.38 38 weeks gestation of pregnancy; Z37.0 Single live birth
CPT/HCPCS: 36415; 80053; 81003; 82962; 84550; 85025; 85610; 85730; 86780; 86850; 86900; 86901; 88307-TC; 90715; C9803; U0003; U0005

== ENCOUNTER 2022-12-15 18:10 | Emergency (ER) | payer OTHER ==
[2022-12-15 18:17] VITALS: BP 122/76; PULSE 100; RESP 18; TEMP 97.9; BMI 34.3
== END 2022-12-15 19:59 | disposition home or self-care (01) ==
LOC: JERFT 18:10
DX: H92.01 Otalgia, right ear (principal); H65.21 Chronic serous otitis media, right ear; H60.61 Unspecified chronic otitis externa, right ear
CPT/HCPCS: 99283-25

== ENCOUNTER 2022-12-18 19:25 | Emergency (ER) | payer OTHER ==
[2022-12-18 19:46] VITALS: BP 140/62; PULSE 103; RESP 18; TEMP 98.2; BMI 37.9
== END 2022-12-18 21:04 | disposition home or self-care (01) ==
LOC: JERFT 19:25 → JER 19:25 → JERFT 21:04
DX: H92.01 Otalgia, right ear (principal); H66.91 Otitis media, unspecified, right ear
CPT/HCPCS: 99283-25

== ENCOUNTER 2024-04-06 13:17 | Inpatient (IN) | payer OTHER ==
[2024-04-06 17:09] VITALS: BMI 40.1
[2024-04-06] MEDS ORDERED: METOCLOPRAMIDE HCL INJECTION 10 MG/2 ML VIAL ONE (17:24)
[2024-04-06] MEDS ORDERED: PHENYLEPHRINE HCL 10 MG/1 ML SINGLE DOSE VIAL ONE (17:24)
[2024-04-06] MEDS ORDERED: ONDANSETRON 4 MG/2 ML VIAL ONE (17:24)
[2024-04-06] MEDS ORDERED: ceFAZolin SODIUM 1 GM VIAL ONE (17:24)
[2024-04-06] MEDS: ELECTROLYTE-148 SOLN 500 ML IV ONE ×2 (17:30→18:06)
[2024-04-06 18:08] LABS: BASO % 0.4 % (0-2.0); EOS % 0.3 % (0-4.5); HEMATOCRIT 43.2 % (32.4-45.2); HEMOGLOBIN 14.2 GM/dL (10.7-15.3); LYMPH % 22.1 % (8-40); MCH 32.4 pg (25.7-33.7); MCHC 32.8 g/dl (32.0-36.0); MEAN CELL VOLUME 98.7 fl (80-96); MEAN PLT VOLUME 9.4 fl (7.5-11.1); MONO % 6.1 % (3.8-10.2); NEUT % 71.1 % (42.8-82.8); PLATELET COUNT 276 10^3/uL (134-434); RBC 4.37 M/mm3 (3.60-5.2); RDW 14.1 % (11.6-15.6); WHITE BLOOD COUNT 10.9 K/mm3 (4.0-10.0)
[2024-04-06 18:09] LABS: INR 0.96 (0.83-1.09)
[2024-04-06 18:12] LABS: ACTIVATED PTT 30.2 SECONDS (25.2-36.5)
[2024-04-06 18:16] LABS: POTASSIUM 4.1 mmol/L (3.5-5.1)
[2024-04-06 18:17] LABS: CALCIUM 9.2 mg/dL (8.5-10.1)
[2024-04-06 18:18] LABS: BLOOD UREA NITROGEN 5.5 mg/dL (7-18)
[2024-04-06 18:21] LABS: CREATININE 0.5 mg/dL (0.55-1.3)
[2024-04-06] MEDS: CITRIC ACID/SODIUM CITRATE 30 ML UNIT-DOSE CUP PO ONE (19:05)
[2024-04-06] MEDS ORDERED: OXYTOCIN 30 UNITS in 0.9% NS 30 UNIT/500 ML INFUS.BAG IVPB ONE (19:08)
[2024-04-06] MEDS ORDERED: morphine SULFATE (PF) 1 MG/2 ML SYRINGE ONE (19:09)
[2024-04-06] MEDS ORDERED: FENTANYL CITRATE/PF 50 MCG/ML VIAL ONE (19:09)
[2024-04-06] MEDS ORDERED: KETOROLAC TROMETHAMINE 30 MG/1 ML VIAL ONE (20:43)
[2024-04-06] MEDS ORDERED: METHYLERGONOVINE MALEATE 0.2 MG/1 ML AMP IM PRN (20:52)
[2024-04-06] MEDS ORDERED: ACETAMINOPHEN 1000 MG/100 ML BAG IVPB PRN (20:54)
[2024-04-06] MEDS ORDERED: IBUPROFEN 800 MG/8 ML IJ IVPB PRN (20:55)
[2024-04-06] MEDS: OXYTOCIN 20 UNITS in 0.9% NS 20 UNIT/1,000 ML INFUS.BAG IV SCH (20:56)
[2024-04-06] MEDS ORDERED: ONDANSETRON 4 MG/2 ML VIAL IVPUSH PRN (21:04)
[2024-04-06] MEDS: morphine SULFATE/PF 1 MG/2 ML (2cc Syringe - QUVA) IT ONE (21:45)
[2024-04-06] MEDS ORDERED: OXYTOCIN 20 UNITS in 0.9% NS 20 UNIT/1,000 ML INFUS.BAG IV ONE (23:04)
[2024-04-07 08:38] LABS: BASO % 0.4 % (0-2.0); EOS % 0.4 % (0-4.5); HEMATOCRIT 36.8 % (32.4-45.2); HEMOGLOBIN 12.5 GM/dL (10.7-15.3); LYMPH % 19.5 % (8-40); MCH 33.2 pg (25.7-33.7); MEAN CELL VOLUME 97.7 fl (80-96); MEAN PLT VOLUME 9.2 fl (7.5-11.1); MONO % 8.2 % (3.8-10.2); NEUT % 71.5 % (42.8-82.8); PLATELET COUNT 218 10^3/uL (134-434); RBC 3.77 M/mm3 (3.60-5.2); RDW 14.7 % (11.6-15.6); WHITE BLOOD COUNT 10.7 K/mm3 (4.0-10.0)
[2024-04-07] MEDS ORDERED: oxyCODONE HCL 5 MG TABLET PO PRN ×2 (08:53)
[2024-04-07] MEDS: IBUPROFEN 600 MG TABLET (FP) PO PRN (15:30)
[2024-04-07] MEDS: SIMETHICONE 80 MG TAB.CHEW (FP) PO PRN (15:30)
[2024-04-07] MEDS ORDERED: BISACODYL 10 MG SUPP.RECT RC PRN (20:53)
[2024-04-08] MEDS: ACETAMINOPHEN 325 MG TABLET (FP) PO PRN (13:58)
[2024-04-09 08:03] VITALS: BP 114/67; PULSE 80; RESP 18; TEMP 98.1
[2024-04-09 08:16] LABS: BASO % 0.4 % (0-2.0); HEMATOCRIT 32.1 % (32.4-45.2); HEMOGLOBIN 11.1 GM/dL (10.7-15.3); LYMPH % 36.1 % (8-40); MCH 33.6 pg (25.7-33.7); MCHC 34.4 g/dl (32.0-36.0); MEAN CELL VOLUME 97.6 fl (80-96); MEAN PLT VOLUME 8.7 fl (7.5-11.1); MONO % 7.1 % (3.8-10.2); NEUT % 55.4 % (42.8-82.8); PLATELET COUNT 231 10^3/uL (134-434); RBC 3.29 M/mm3 (3.60-5.2); RDW 14.8 % (11.6-15.6); WHITE BLOOD COUNT 8.4 K/mm3 (4.0-10.0)
== END 2024-04-09 13:18 | disposition home or self-care (01) | DRG 540 ==
LOC: JDEL 13:17 → JLDR 16:30 → J3W 23:13
PROVIDERS: ADMIT Obstetrics & Gynecology Obstetrics; ATTEND Obstetrics & Gynecology Obstetrics
PROC: 10D00Z1 Extraction of Products of Conception, Low, Open Approach (ICD-10-PCS; principal; 2024-04-06)
DX: O34.211 Maternal care for low transverse scar from previous cesarean delivery (principal); O99.214 Obesity complicating childbirth; N85.8 Other specified noninflammatory disorders of uterus; Z3A.39 39 weeks gestation of pregnancy; Z37.0 Single live birth
CPT/HCPCS: 36415; 59409; 80048; 85025; 85610; 85730; 86780; 86850; 86900; 86901; 88307-TC; 94010